=== PATIENT | male | born 1950 | race African-American/Black ===

== ENCOUNTER 2017-04-22 06:18 | Emergency (ER) | payer OTHER ==
[~2017-04-22] VITALS: Ht 167.6 cm; Wt 136.1 kg
[2017-04-22 06:59] LABS: ABSOLUTE NEUTROPHILS 10.9 thou/uL (1.4-8.2); BASOPHILS 0.2 % (0.0-2.0); EOSINOPHILS 0.2 % (0.0-3.0); HEMATOCRIT 38.7 % (42.0-52.0); HEMOGLOBIN 12.4 gm/dL (14.0-18.0); LYMPHOCYTES 8.3 % (24.0-44.0); MCH 26.2 pg (26.0-34.0); MCHC 32.1 g/dL (28.0-37.0); MCV 81.7 fL (80.0-100.0); MONOCYTES 4.1 % (1.0-8.0); PLATELET COUNT 252 thou/uL (150-400); POLYS 87.2 % (36.0-66.0); RBC 4.74 mil/uL (4.50-6.00); RDW 16.2 % (10.5-14.5); WBC 12.5 thou/uL (4.0-11.0)
[2017-04-22 07:00] LABS: MANUAL DIFF NO
[2017-04-22 07:06] LABS: CALCIUM 9.6 mg/dL (8.5-10.1); CREATININE 1.2 mg/dL (0.7-1.3); POTASSIUM 3.8 mmol/L (3.5-5.1)
[2017-04-22 07:13] LABS: ALBUMIN 3.6 g/dL (3.4-5.0); DIRECT BILIRUBIN 0.7 mg/dL (<0.1-0.3); TOTAL BILIRUBIN 1.4 mg/dL (<0.1-1.0); TOTAL PROTEIN 7.9 g/dL (6.4-8.2)
[2017-04-22 08:55] LABS: URINE BLOOD NEGATIVE (Negative); URINE COLOR YELLOW; URINE GLUCOSE-RANDOM* NEGATIVE (Negative); URINE KETONES NEGATIVE (Negative); URINE LEUKOCYTES-REFLEX NEGATIVE (Negative); URINE PROTEIN (DIPSTICK) NEGATIVE (Negative)
[2017-04-22 08:58] LABS: ICTOTEST (BILI CONFIRMATORY) Positive (Negative)
[2017-04-22 09:00] LABS: URINE BILIRUBIN TRACE (Negative)
[2017-04-22] MEDS ORDERED: ULTRAM 50MG TAB50 MG PO (10:23)
[2017-04-22 10:39] VITALS: BP 145/85
== END 2017-04-22 10:39 | disposition home or self-care (01) ==
LOC: ER 06:18
PROVIDERS: Emergency Medicine
DX: E80.6 Other disorders of bilirubin metabolism (principal); E87.2 Acidosis; D72.829 Elevated white blood cell count, unspecified; Z98.890 Other specified postprocedural states

== ENCOUNTER 2017-07-10 19:25 | Emergency (ER) | payer OTHER ==
[~2017-07-10] VITALS: Ht 177.8 cm; Wt 142.9 kg
[~2017-07-10 19:25] MED LIST: ULTRAM 50MG TAB50 MG PO
[2017-07-10] MEDS ORDERED: ASPIRIN325 PO (19:37)
[2017-07-10] MEDS ORDERED: LASIX 20 MG TAB20 MG PO (19:37)
[2017-07-10] MEDS ORDERED: LIPITOR80 MG PO (19:37)
[2017-07-10] MEDS ORDERED: METFORMIN HCL500 MG PO (19:38)
[2017-07-10] MEDS ORDERED: POTASSIUM20 PO (19:38)
[2017-07-10] MEDS ORDERED: NORVASC5 MG PO (19:38)
[2017-07-10] MEDS ORDERED: OMEPRAZOLE 20 M20 M1 PO (19:39)
[2017-07-10] MEDS ORDERED: BISOPROLOL FUMAR5 MG PO (19:39)
[2017-07-10] MEDS ORDERED: NORCO 10-325 T1 EACH PO (20:46)
[2017-07-10] MEDS ORDERED: MOBIC7.5 MG PO (20:46)
[2017-07-10 21:02] VITALS: BP 150/85
== END 2017-07-10 21:00 | disposition home or self-care (01) ==
LOC: ER 19:25
DX: M17.12 Unilateral primary osteoarthritis, left knee (principal); M25.462 Effusion, left knee; Z88.8 Allergy status to other drugs, medicaments and biological substances

== ENCOUNTER 2018-02-16 23:30 | Inpatient (IN) | payer OTHER ==
[~2018-02-16] VITALS: Ht 167.6 cm; Wt 147.4 kg
--- NOTE | ~2018-02-16 | 2DMMODE ---
[facility] [address] [place] [address] 2 D/M-MODE ECHOCARDIOGRAM Name: ALLIE BOYD Room #: 212-P ADM IN M.R.#: [id number] Admission: 02/17/18 Attend Phys: Shara Ramos Discharge: Date of : 54 Date of Service: 02/18/18 1028 Report #: [id number] THIS REPORT FOR: //name// APPROVED REPORT Study performed: 02/18/2018 07:56:57 EXAM: Comprehensive 2D, Doppler, and color-flow Echocardiogram Patient Location: Bedside Room #: 212 Status: routine BSA: 2.45 HR: 108 bpm BP: 117/72 mmHg Other Information Study Quality: Adequate Indications Congestive Heart Failure Diabetes Atrial Fibrillation CAD Defibrillator 2D Dimensions RVDd: 46.45 mm LVEF(%): 42.67 (>50%) IVSd: 13.56 (7-11mm) LVOT Diam: 24.75 (18-24mm) LVDd: 63.00 mm PWd: 15.05 (7-11mm) Ascending Ao: 37.22 (22-36mm) LVDs: 49.46 (25-40mm) Aortic Root: 33.39 mm IVC: 27.00 mm Harman's LVEF: 42.67 % Volumes Left Atrial Volume (Systole) Single Plane 4CH: 136.03 mL Single Plane 2CH: 146.83 mL LA ESV Index: 61.00 mL/m2 Aortic Valve AoV Peak Darius.: 1.50 m/s AO Peak Gr.: 8.96 mmHg LVOT Max P.66 mmHg LVOT Max V: 0.82 m/s ERENDIRA Vmax: 2.62 cm2 [facility] [address] [place] [address] 2 D/M-MODE ECHOCARDIOGRAM Name: ALLIE BOYD Room #: 212-P [facility].#: [id number] Admission: 02/17/18 Attend Phys: Shara Ramos Discharge: Date of : 54 Date of Service: 02/18/18 1028 Report #: [id number] Mitral Valve MV Decel. Time: 197.82 ms MV E Max Darius.: 1.15 m/s IVRT: 69.20 ms Pulmonary Valve PV Peak Darius.: 0.99 m/s PV Peak Gr.: 3.95 mmHg Tricuspid Valve TR Peak Darius.: 2.41 m/s RAP Estimate: 15.00 mmHg TR Peak Gr.: 30.70 mmHg PA Pressure: 45.00 mmHg Left Ventricle Left ventricle is dilated. Mild to moderate concentric left ventricular hypertrophy. Left ventricular ejection fraction is moderately to severely decreased. LVEF is 30-35%. This study is not technically sufficient to allow evaluation of the LV diastolic function due to atrial fibrillation. Right Ventricle Right ventricle is dilated. Right ventricle is mildly hypokinetic. Atria Left atrium is severely dilated. Right atrium is severely dilated. Aortic Valve Aortic valve is calcified. Mild aortic regurgitation. There is no aortic valvular stenosis. Mitral Valve Mild mitral annular calcification. Severe mitral regurgitation. No evidence of mitral valve stenosis. Tricuspid Valve The tricuspid valve is normal in structure. Moderate to severe tricuspid regurgitation. PAP is estimated at 45 mmHg. Pulmonic Valve Pulmonic valve is not well visualized. Mild pulmonic regurgitation. Great Vessels The aortic root is normal in size. IVC is dilated and collapses [facility] [address] [place] [address] 2 D/M-MODE ECHOCARDIOGRAM Name: ALLIE BOYD Room #: 212-P ADM IN M.R.#: [id number] Admission: 02/17/18 Attend Phys: Shara Ramos Discharge: Date of : 54 Date of Service: 02/18/18 1028 Report #: [id number] <50% with inspiration. Pericardium There is no pericardial effusion. <Conclusion> Left ventricle is dilated. Left ventricular ejection fraction is moderately to severely decreased. LVEF is 30-35%. Right ventricle is dilated. Right ventricle is mildly hypokinetic. Left atrium is severely dilated. Right atrium is severely dilated. Aortic valve is calcified. Mild aortic regurgitation. There is no aortic valvular stenosis. Mild mitral annular calcification. Severe mitral regurgitation. The tricuspid valve is normal in structure. Moderate to severe tricuspid regurgitation. PAP is estimated at 45 mmHg. Pulmonic valve is not well visualized. Mild pulmonic regurgitation. There is no pericardial effusion. <ELECTRONICALLY SIGNED> By: Mitesh Black MD 02/18/18 1028 1028 1028 Mitesh Black MD /INF
--- NOTE | ~2018-02-16 | EKG ---
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: [place] : 1950 Requested By: Devante Puckett Order Number: [id number] MD: Solomon Belcher Measurements Intervals [place] Rate: 106 P: ID: QRS: 45 QRSD: 107 T: 254 QT: 301 QTc: 400 Interpretive Statements Atrial fibrillation LVH with secondary repolarization abnormality Compared to ECG 03/01/2017 03:57:20 atrial fibrillation is now present nonspecific change in the ST and T-wave segments Electronically Signed On 02-17-2018 7:58:28 CDT by Solomon Belcher [email or web address] <ELECTRONICALLY SIGNED> By: Solomon Belcher MD, [facility] 02/17/18 0758 42 42 Solomon Belcher MD, [facility] /EPI
--- NOTE | ~2018-02-16 | EKG ---
[address] [address] ELECTROCARDIOGRAM REPORT Name: ALLIE BOYD Room #: 212-P ADM IN M.R.#: [id number] Admission: 02/17/18 Attend Phys: Tushar Ferguson MD Discharge: Date of : 54 Report #: [id number] THIS REPORT FOR: //name// [facility] Test Date: 2018-02-17 Test Time: 14:06:01 Pat Name: ALLIE BOYD Department: Room: 432 P Gender: M Psychologist Educational: Shara LARSEN : 1950 Requested By: Emerson Butterfield Order Number: [id number] MD: Frederic Apple Measurements Intervals [place] Rate: 121 P: NM: QRS: 28 QRSD: 106 T: 227 QT: 343 QTc: 487 Interpretive Statements Atrial fibrillation Ventricular premature complex Nonspecific T abnormalities, lateral leads Borderline prolonged QT interval Compared to ECG 02/16/2018 23:43:44 Ventricular premature complex(es) now present T-wave abnormality now present Left ventricular hypertrophy no longer present Early repolarization no longer present Electronically Signed On 02-17-2018 16:18:27 CDT by Frederic Apple [email or web address] <ELECTRONICALLY SIGNED> By: Frederic Apple MD 02/17/18 1618 1406 140 Frederic Apple MD /EPI
[~2018-02-16 23:30] MED LIST changes: +AMLODIPINE BESY10 MG PO; +ASPIRIN325 PO; +ATORVASTATIN CA80 MG PO; +BISOPROLOL FUMAR5 MG PO; +CHLORTHALIDONE25 MG PO; +CITRATE OF MAG296 ML PO; +COLACE100 MG PO; +LASIX 20 MG TAB20 MG PO; +LASIX 40 MG TAB40 M2 PO; +LIPITOR80 MG PO; +METFORMIN HCL500 MG PO; +MOBIC7.5 MG PO; +NORCO 10-325 T1 EACH PO; +NORVASC5 MG PO; +OMEPRAZOLE 20 M20 M1 PO; +OMEPRAZOLE 20 M20 MG PO; +POTASSIUM20 PO; +ZEBETA10 MG PO
[2018-02-17] VITALS (13 sets, daily range): BP systolic 96–143; BP diastolic 64–118
[2018-02-17 00:06] LABS: BASOPHILS 0.9 % (0.0-2.0); HEMATOCRIT 37.4 % (42.0-52.0); HEMOGLOBIN 12.2 gm/dL (14.0-18.0); MCH 27.3 pg (26.0-34.0); MCHC 32.7 g/dL (28.0-37.0); MCV 83.3 fL (80.0-100.0); MONOCYTES 8.8 % (1.0-8.0); PLATELET COUNT 213 thou/uL (150-400); POLYS 60.3 % (36.0-66.0); RBC 4.48 mil/uL (4.50-6.00); RDW 15.3 % (10.5-14.5); WBC 8.3 thou/uL (4.0-11.0)
[2018-02-17 00:16] LABS: CALCIUM 9.2 mg/dL (8.5-10.1); CREATININE 1.5 mg/dL (0.7-1.3); POTASSIUM 3.9 mmol/L (3.5-5.1)
[2018-02-17 00:22] LABS: ALBUMIN 3.4 g/dL (3.4-5.0); TOTAL BILIRUBIN 0.6 mg/dL (<0.1-1.0); TOTAL PROTEIN 6.8 g/dL (6.4-8.2)
[2018-02-17 00:47] LABS: URINE BLOOD TRACE (Negative); URINE CLARITY CLEAR; URINE GLUCOSE-RANDOM* NEGATIVE (Negative); URINE KETONES NEGATIVE (Negative); URINE LEUKOCYTES-REFLEX NEGATIVE (Negative); URINE NITRITE-REFLEX NEGATIVE (Negative); URINE PROTEIN (DIPSTICK) 3+ (Negative); URINE SPECIFIC GRAVITY >= 1.030 (1.005-1.035)
[2018-02-17 00:53] LABS: ICTOTEST (BILI CONFIRMATORY) Negative (Negative); URINE BILIRUBIN NEGATIVE (Negative)
[2018-02-17 00:54] LABS: URINE COLOR DARK YELLOW
[2018-02-17 01:01] LABS: HYALINE CASTS 4-10 Moderate /LPF (None Seen); MUCUS >6 Heavy strn/LPF (None Seen); SQUAMOUS >10 Many /LPF (0-3)
[2018-02-17 01:02] LABS: CRYSTALS None Seen /LPF (None Seen); URINE RBC 0-2 Rare /HPF (0-2); URINE WBC-REFLEX 6-15 Few /HPF (0-5)
[2018-02-17] MEDS ORDERED: PROAIR RESPICL90 MCG INH (05:08)
[2018-02-17] MEDS ORDERED: ASPIRIN81 M2 PO (05:09)
[2018-02-17] MEDS ORDERED: ZETIA10 MG PO (05:09)
[2018-02-17] MEDS ORDERED: COZAAR 50 MG TA50 M2 PO (05:09)
[2018-02-17] MEDS ORDERED: XARELTO20 MG PO (05:10)
[2018-02-17] MEDS ORDERED: SPIRIVA18 MCG INH (05:10)
[2018-02-17 10:51] LABS: TSH 1.521 uIU/mL (0.358-3.740)
[2018-02-18] VITALS (22 sets, daily range): BP systolic 91–131; BP diastolic 63–88
[2018-02-18 04:09] LABS: ABSOLUTE NEUTROPHILS 5.2 thou/uL (1.4-8.2); BASOPHILS 0.7 % (0.0-2.0); EOSINOPHILS 1.1 % (0.0-3.0); HEMATOCRIT 35.4 % (42.0-52.0); HEMOGLOBIN 11.4 gm/dL (14.0-18.0); LYMPHOCYTES 21.1 % (24.0-44.0); MCH 26.7 pg (26.0-34.0); MCHC 32.1 g/dL (28.0-37.0); MCV 83.3 fL (80.0-100.0); MONOCYTES 9.1 % (1.0-8.0); PLATELET COUNT 210 thou/uL (150-400); RBC 4.25 mil/uL (4.50-6.00); RDW 15.2 % (10.5-14.5); WBC 7.7 thou/uL (4.0-11.0)
[2018-02-18 04:29] LABS: ALBUMIN 3.2 g/dL (3.4-5.0); CALCIUM 8.9 mg/dL (8.5-10.1); CREATININE 1.3 mg/dL (0.7-1.3); POTASSIUM 3.6 mmol/L (3.5-5.1); TOTAL BILIRUBIN 0.9 mg/dL (<0.1-1.0); TOTAL PROTEIN 6.6 g/dL (6.4-8.2)
[2018-02-19] VITALS (7 sets, daily range): BP systolic 100–139; BP diastolic 77–90
[2018-02-19 03:27] LABS: ABSOLUTE NEUTROPHILS 7.5 thou/uL (1.4-8.2); BASOPHILS 0.4 % (0.0-2.0); EOSINOPHILS 0.3 % (0.0-3.0); HEMATOCRIT 34.9 % (42.0-52.0); HEMOGLOBIN 11.4 gm/dL (14.0-18.0); LYMPHOCYTES 16.9 % (24.0-44.0); MCHC 32.6 g/dL (28.0-37.0); MCV 82.8 fL (80.0-100.0); MONOCYTES 7.8 % (1.0-8.0); PLATELET COUNT 216 thou/uL (150-400); POLYS 74.6 % (36.0-66.0); RBC 4.22 mil/uL (4.50-6.00); RDW 15.7 % (10.5-14.5); WBC 10.1 thou/uL (4.0-11.0)
[2018-02-19 03:32] LABS: CALCIUM 9.1 mg/dL (8.5-10.1); CREATININE 1.3 mg/dL (0.7-1.3); POTASSIUM 4.3 mmol/L (3.5-5.1)
[2018-02-20 01:56] LABS: HEMATOCRIT 39.7 % (42.0-52.0); HEMOGLOBIN 12.8 gm/dL (14.0-18.0); MCH 26.9 pg (26.0-34.0); MCHC 32.2 g/dL (28.0-37.0); MCV 83.6 fL (80.0-100.0); RBC 4.75 mil/uL (4.50-6.00); RDW 15.6 % (10.5-14.5); WBC 9.6 thou/uL (4.0-11.0)
[2018-02-20 02:10] LABS: CALCIUM 9.3 mg/dL (8.5-10.1); CREATININE 1.4 mg/dL (0.7-1.3); POTASSIUM 4.2 mmol/L (3.5-5.1)
[2018-02-20 04:30] VITALS: BP 125/88
[2018-02-20 07:40] VITALS: BP 126/78
[2018-02-20] MEDS ORDERED: LEVAQUIN 500 M500 M2 PO (08:51)
[2018-02-20] MEDS ORDERED: CARDIZEM CD240 MG PO (08:51)
[2018-02-20] MEDS ORDERED: BISOPROLOL FUMAR5 MG PO (08:51)
[2018-02-20 11:45] VITALS: BP 111/70
[2018-02-20 12:25] VITALS: BP 111/70
== END 2018-02-20 15:15 | disposition home or self-care (01) | DRG 308 ==
LOC: ER 23:30 → 4E 02-17 02:46 → 2N 02-17 02:46 → EROBS 02-17 02:46 → 4E 02-17 03:35 → 2N 02-17 14:40
PROVIDERS: Emergency Medicine; Hospitalist; Internal Medicine; Internal Medicine Geriatric Medicine
DX: I48.91 Unspecified atrial fibrillation (principal); J18.9 Pneumonia, unspecified organism; N17.9 Acute kidney failure, unspecified; N39.0 Urinary tract infection, site not specified; I42.9 Cardiomyopathy, unspecified; K21.9 Gastro-esophageal reflux disease without esophagitis; E78.5 Hyperlipidemia, unspecified; I11.0 Hypertensive heart disease with heart failure; I50.9 Heart failure, unspecified; E11.9 Type 2 diabetes mellitus without complications; I25.10 Atherosclerotic heart disease of native coronary artery without angina pectoris; Z95.1 Presence of aortocoronary bypass graft; Z88.8 Allergy status to other drugs, medicaments and biological substances; I25.2 Old myocardial infarction; Z79.01 Long term (current) use of anticoagulants; Z95.810 Presence of automatic (implantable) cardiac defibrillator; Z87.891 Personal history of nicotine dependence; Z79.2 Long term (current) use of antibiotics; Z79.899 Other long term (current) drug therapy; Z79.82 Long term (current) use of aspirin
CPT/HCPCS: 10081

== ENCOUNTER 2018-08-14 18:24 | Emergency (ER) | payer OTHER ==
[~2018-08-14] VITALS: Ht 167.6 cm; Wt 131.1 kg
--- NOTE | ~2018-08-14 | EKG ---
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: JANINA : 1950 Requested By: Tiffanie Torres Order Number: [id number] MD: Frederic Apple Measurements Intervals [place] Rate: 69 P: 44 [place]: 227 QRS: 48 QRSD: 109 T: -9 QT: 400 QTc: 429 Interpretive Statements Sinus rhythm Prolonged OH interval Probable left atrial enlargement Left ventricular hypertrophy Compared to ECG 02/17/2018 14:06:01 First degree AV block now present Left ventricular hypertrophy now present Atrial fibrillation no longer present Ventricular premature complex(es) no longer present T-wave abnormality no longer present Electronically Signed On 08-14-2018 20:56:20 [employer] by Frederic Apple [email or web address] <ELECTRONICALLY SIGNED> By: Frederic Apple MD 08/14/182055 55 55 Frederic Apple MD /EPI
[~2018-08-14 18:24] MED LIST changes: +ASPIRIN81 M2 PO; +CARDIZEM CD240 MG PO; +COZAAR 50 MG TA50 M2 PO; +LEVAQUIN 500 M500 M2 PO; +PROAIR RESPICL90 MCG INH; +SPIRIVA18 MCG INH; +XARELTO20 MG PO; +ZETIA10 MG PO
[2018-08-14 18:52] LABS: URINE BILIRUBIN 1+ (Negative); URINE BLOOD NEGATIVE (Negative); URINE CLARITY CLEAR; URINE COLOR YELLOW; URINE GLUCOSE-RANDOM* NEGATIVE (Negative); URINE KETONES NEGATIVE (Negative); URINE LEUKOCYTES-REFLEX NEGATIVE (Negative); URINE NITRITE-REFLEX NEGATIVE (Negative); URINE PROTEIN (DIPSTICK) NEGATIVE (Negative); URINE SPECIFIC GRAVITY 1.025 (1.005-1.035)
[2018-08-14 18:53] LABS: ICTOTEST (BILI CONFIRMATORY) Positive (Negative)
[2018-08-14 19:43] LABS: HEMATOCRIT 43.3 % (42.0-52.0); HEMOGLOBIN 14.3 gm/dL (14.0-18.0); MCH 27.8 pg (26.0-34.0); MCHC 33.1 g/dL (28.0-37.0); MCV 84.2 fL (80.0-100.0); RBC 5.15 mil/uL (4.50-6.00); RDW 15.5 % (10.5-14.5)
[2018-08-14 19:53] LABS: ANION GAP 9 mmol/L (7-16); BUN 13 mg/dL (7-18); CALCIUM 9.8 mg/dL (8.5-10.1); CHLORIDE 106 mmol/L (98-107); CO2 26 mmol/L (21-32); CREATININE 1.1 mg/dL (0.7-1.3); GLUCOSE 114 mg/dL (74-106); SODIUM 141 mmol/L (136-145)
[2018-08-14 20:03] LABS: ALBUMIN 3.7 g/dL (3.4-5.0); LIPASE 89 U/L (73-393); SGOT 159 U/L (15-37); SGPT 72 U/L (30-65); TOTAL BILIRUBIN 1.5 mg/dL (<0.1-1.0); TOTAL PROTEIN 7.6 g/dL (6.4-8.2); TROPONIN-I <0.06 ng/mL (<0.06)
[2018-08-14] MEDS ORDERED: BENTYL 20 MG TA20 M1 PO (21:45)
[2018-08-14 22:10] VITALS: BP 131/74
== END 2018-08-14 22:11 | disposition home or self-care (01) ==
LOC: ER 18:24
PROVIDERS: Student in an Organized Health Care Education/Training Program
DX: R10.84 Generalized abdominal pain (principal); I25.10 Atherosclerotic heart disease of native coronary artery without angina pectoris; E78.5 Hyperlipidemia, unspecified; E11.9 Type 2 diabetes mellitus without complications; K21.9 Gastro-esophageal reflux disease without esophagitis; I48.91 Unspecified atrial fibrillation; I11.0 Hypertensive heart disease with heart failure; I50.9 Heart failure, unspecified; Z88.8 Allergy status to other drugs, medicaments and biological substances

== ENCOUNTER 2019-05-21 16:03 | Emergency (ER) | payer OTHER ==
[~2019-05-21] VITALS: Ht 167.6 cm; Wt 140.6 kg
[~2019-05-21 16:03] MED LIST changes: +BENTYL 20 MG TA20 M1 PO
[2019-05-21] MEDS ORDERED: ACETAMINOPHEN-1 EAC1 PO (17:12)
[2019-05-21 18:22] VITALS: BP 149/80
== END 2019-05-21 19:08 | disposition home or self-care (01) ==
LOC: ER 16:03
DX: B02.31 Zoster conjunctivitis (principal); I25.10 Atherosclerotic heart disease of native coronary artery without angina pectoris; I10 Essential (primary) hypertension; E78.5 Hyperlipidemia, unspecified; E11.9 Type 2 diabetes mellitus without complications; K21.9 Gastro-esophageal reflux disease without esophagitis; I48.91 Unspecified atrial fibrillation; I50.9 Heart failure, unspecified; Z88.8 Allergy status to other drugs, medicaments and biological substances

== ENCOUNTER 2019-05-26 11:50 | Emergency (ER) | payer OTHER ==
[~2019-05-26] VITALS: Ht 175.3 cm; Wt 145.2 kg
[~2019-05-26 11:50] MED LIST changes: +ACETAMINOPHEN-1 EAC1 PO
[2019-05-26] MEDS ORDERED: ULTRAM 50MG TAB50 MG PO (13:47)
[2019-05-26 14:15] VITALS: BP 141/68
== END 2019-05-26 14:15 | disposition home or self-care (01) ==
LOC: ER 11:50
DX: B02.33 Zoster keratitis (principal); I25.10 Atherosclerotic heart disease of native coronary artery without angina pectoris; I10 Essential (primary) hypertension; E78.5 Hyperlipidemia, unspecified; E11.9 Type 2 diabetes mellitus without complications; K21.9 Gastro-esophageal reflux disease without esophagitis; I48.91 Unspecified atrial fibrillation; Z88.8 Allergy status to other drugs, medicaments and biological substances

== ENCOUNTER 2019-06-03 05:22 | Emergency (ER) | payer OTHER ==
[~2019-06-03] VITALS: Ht 188 cm; Wt 144.7 kg
[2019-06-03] MEDS ORDERED: ULTRAM 50MG TAB50 MG PO (05:58)
[2019-06-03 07:22] VITALS: BP 149/78
== END 2019-06-03 07:23 | disposition still patient (30) ==
LOC: ER 05:22
DX: B02.30 Zoster ocular disease, unspecified (principal); I25.10 Atherosclerotic heart disease of native coronary artery without angina pectoris; E11.9 Type 2 diabetes mellitus without complications; E78.5 Hyperlipidemia, unspecified; K21.9 Gastro-esophageal reflux disease without esophagitis; I48.91 Unspecified atrial fibrillation; I11.0 Hypertensive heart disease with heart failure; I50.9 Heart failure, unspecified; Z88.8 Allergy status to other drugs, medicaments and biological substances

== ENCOUNTER 2020-05-21 09:44 | Emergency (ER) | payer OTHER ==
[~2020-05-21] VITALS: Ht 180.3 cm; Wt 149.7 kg
[2020-05-21] MEDS ORDERED: OMEPRAZOLE 20 M20 M1 PO (11:04)
[2020-05-21] MEDS ORDERED: ENTRESTO 97 MG1 EACH PO (11:05)
[2020-05-21] MEDS ORDERED: IMDUR 30 MG TAB30 M1 PO (11:05)
[2020-05-21] MEDS ORDERED: HYDRALAZINE 2525 M1 PO (11:08)
[2020-05-21 11:17] LABS: ABSOLUTE NEUTROPHILS 4.3 thou/uL (1.4-8.2); EOSINOPHILS 7.4 % (0.0-3.0); HEMATOCRIT 40.4 % (42.0-52.0); HEMOGLOBIN 13.2 gm/dL (14.0-18.0); LYMPHOCYTES 20.8 % (24.0-44.0); MCH 28.2 pg (26.0-34.0); MCHC 32.7 g/dL (28.0-37.0); MCV 86.4 fL (80.0-100.0); MONOCYTES 7.7 % (1.0-8.0); PLATELET COUNT 204 thou/uL (150-400); POLYS 63.1 % (36.0-66.0); RBC 4.67 mil/uL (4.50-6.00); RDW 15.4 % (10.5-14.5); WBC 6.9 thou/uL (4.0-11.0)
[2020-05-21 11:21] LABS: ANION GAP 7 mmol/L (7-16); BUN 10 mg/dL (7-18); CHLORIDE 108 mmol/L (98-107); CO2 28 mmol/L (21-32); GLUCOSE 124 mg/dL (74-106); POTASSIUM 4.3 mmol/L (3.5-5.1); SODIUM 143 mmol/L (136-145)
[2020-05-21 11:30] LABS: ALBUMIN 3.4 g/dL (3.4-5.0); DIRECT BILIRUBIN 0.1 mg/dL (<0.1-0.2); SGOT 29 U/L (15-37); SGPT 28 U/L (30-65); TOTAL BILIRUBIN 0.7 mg/dL (0.2-1.0); TOTAL PROTEIN 7.2 g/dL (6.4-8.2); TROPONIN-I <0.06 ng/mL (<0.06)
--- NOTE | 2020-05-21 13:12 | EKG ---
[facility] [place] [address] ELECTROCARDIOGRAM REPORT Name: ALLIE BOYD Room #: REG M..#: [id number] Admission: 05/21/20 Attend Phys: Discharge: Date of : 54 Report #: [id number] THIS REPORT FOR: cc: Selina Peraza K. Steven DO Lundgren, Craig H. 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 Marketing Manager: RODRIGO : 1950 Requested By: Mini Lind Order Number: [id number] MD: Solomon Belcher Measurements Intervals [place] Rate: 87 P: 29 [place]: 184 QRS: 56 QRSD: 108 T: -73 QT: 349 QTc: 420 Interpretive Statements Sinus rhythm Frequent premature ventricular complexes Nonspecific ST and T wave abnormality Compared to ECG 08/14/2018 18:56:38 Ventricular premature complex(es) now present Electronically Signed On 05-21-2020 13:12:10 CDT by Solomon Belcher [email or web address] <ELECTRONICALLY SIGNED> By: Solomon Belcher MD, FACC 05/21/20 1312 0949 0949 Solomon Belcher MD, [facility] /EPI
[2020-05-21] MEDS ORDERED: PREDNISONE50 MG PO (15:19)
[2020-05-21 16:05] VITALS: BP 151/64
== END 2020-05-21 16:06 | disposition home or self-care (01) ==
LOC: ER 09:44
PROVIDERS: Emergency Medicine
DX: J44.1 Chronic obstructive pulmonary disease with (acute) exacerbation (principal); I10 Essential (primary) hypertension; E11.9 Type 2 diabetes mellitus without complications; I25.10 Atherosclerotic heart disease of native coronary artery without angina pectoris; E78.5 Hyperlipidemia, unspecified; I48.91 Unspecified atrial fibrillation; Z95.1 Presence of aortocoronary bypass graft; Z79.82 Long term (current) use of aspirin; Z79.899 Other long term (current) drug therapy; Z88.8 Allergy status to other drugs, medicaments and biological substances

== ENCOUNTER 2021-08-30 05:55 | Emergency (ER) | payer OTHER ==
[~2021-08-30] VITALS: Ht 167.6 cm; Wt 141.1 kg
[~2021-08-30 05:55] MED LIST changes: +ENTRESTO 97 MG1 EACH PO; +HYDRALAZINE 2525 M1 PO; +IMDUR 30 MG TAB30 M1 PO; +PREDNISONE50 MG PO
[2021-08-30 06:00] VITALS: BP 152/74
[2021-08-30] MEDS ORDERED: NORCO7.5 PO (07:07)
== END 2021-08-30 07:06 | disposition home or self-care (01) ==
LOC: ER 05:55
DX: M19.012 Primary osteoarthritis, left shoulder (principal); I25.10 Atherosclerotic heart disease of native coronary artery without angina pectoris; I10 Essential (primary) hypertension; E11.9 Type 2 diabetes mellitus without complications; K21.9 Gastro-esophageal reflux disease without esophagitis; I48.91 Unspecified atrial fibrillation; Z88.8 Allergy status to other drugs, medicaments and biological substances; Z79.899 Other long term (current) drug therapy; Z79.82 Long term (current) use of aspirin; Z95.1 Presence of aortocoronary bypass graft